=== PATIENT | male | born 1990 | race Caucasian/White ===

== ENCOUNTER 2016-11-02 18:27 | Emergency (ER) | payer BC, OTHER ==
[~2016-11-02] VITALS: Ht 188 cm; Wt 87.0 kg
[~2016-11-02 18:27] MED LIST: CEPH500C PO
[2016-11-02 18:30] VITALS: TEMP 37; Ht 188 cm; Wt 87.0 kg
[2016-11-02] MEDS ORDERED: SODIUM CHLORIDE 0.9% 1000ML 1,000 ML IV STA (18:50)
[2016-11-02 18:58] LABS: BASO % 0.9 %; BASO ABS # 0.05 K/uL (0-0.2); COMPLETE YES; EOS % 2.2 %; HEMATOCRIT 44.1 % (42-52); IG% 0.2 %; LYMPH % 25.4 %; LYMPH ABS # 1.37 K/uL (1.2-3.4); MEAN CELL VOLUME 90.2 fL (80-100); MEAN CORPUSCULAR HEMOGLOBIN 33.5 pg (25-34); MEAN CORPUSCULAR HGB CONC 37.2 g/dl (32-36); MEAN PLATELET VOLUME 9.7 fL (7.4-10.4); MONO % 10.9 %; NEUT % 60.4 %; PLATELET COUNT 254 K/uL (130-400); RED BLOOD COUNT 4.89 M/uL (4.7-6.1)
[2016-11-02] MEDS ORDERED: MULT-506 PO (19:04)
[2016-11-02 19:08] LABS: URINE APPEARANCE CLEAR (CLEAR); URINE BILIRUBIN NEG (NEG); URINE COLOR YELLOW; URINE NITRITE NEG (NEG); URINE SPECIFIC GRAVITY 1.005 (1.000-1.030); UROBILINOGEN NEG (NEG); ZZUR CULT IF INDIC CLEAN CATCH NO
[2016-11-02 19:10] LABS: MANUAL MICROSCOPIC REQUIRED? NO; REVIEW REQ? NO
[2016-11-02 19:13] LABS: ALT/SGPT 26 U/L (12-78); BLOOD UREA NITROGEN 16 mg/dl (7-18); BUN/CREATININE RATIO 9.1 (10-20); CALCIUM 9.2 mg/dl (8.5-10.1); CARBON DIOXIDE 23 mmol/L (21-32); CHLORIDE 99 mmol/L (98-107); GLUCOSE 108 mg/dl (70-99); MAGNESIUM 1.5 mg/dl (1.8-2.4); POTASSIUM 3.3 mmol/L (3.5-5.1); SODIUM 138 mmol/L (136-145)
[2016-11-02 19:24] LABS: ALB/GLOB RATIO 1.3 (0.9-2); ALKALINE PHOSPHATASE 43 U/L (45-117); AST/SGOT 28 U/L (15-37); CKMB/CK RATIO 0.4 (0-3.0)
[2016-11-02 19:33] LABS: BENZODIAZEPINE, URINE NEG (NEG); COCAINE,URINE NEG (NEG); PHENCYCLIDINE, URINE NEG (NEG)
--- NOTE | 2016-11-02 19:56 | EMERGENCY ROOM VISIT NOTE ---
History First contact with patient: 18:40 Chief Complaint: OTHER COMPLAINT Stated Complaint: MUSCLE CRAMPING History of Present Illness The patient is a 26 year old male who presents to the Emergency Room with complaints of muscle cramping. The patient reports that he was lifting weights and was performing pushups when he became lightheaded. He states that he then developed tingling in both of his hands and feet. He sat down and felt cramping all over his body. He reports that his hands and wrists spasm and he was unable to move them. He also had cramping throughout his abdomen. This lasted for approximately 45 minutes, until EMS arrived and started IV fluids. He states that his symptoms have resolved at this time, but he is concerned that his blood pressure is high. He takes a pre-workout containing caffeine and a creatine supplement. He denies any recent illnesses or fevers. He denies any chest pain, shortness of breath, nausea or vomiting. He denies any headaches or neck pain. Review of Systems A complete 10-point Review of Systems was discussed with the patient, with pertinent positives and negatives listed in the History of Present Illness. All remaining Review of Systems questions can be considered negative unless otherwise specified. Social History Smoking Status: Never Smoker Current/Historical Medications Scheduled Multivitamin (Multivitamin), 1 TAB PO DAILY Allergies Coded Allergies: Sulfa Antibiotics (Unverified Allergy, Unknown, RASH, 11/02/16) Physical Exam Vital Signs Date Time Temp Pulse Resp B/P Pulse Ox O2 Delivery O2 Flow Rate FiO2 11/02/16 20:03 89 16 137/71 98 Room Air 11/02/16 19:07 83 11/02/16 18:30 37.0 92 16 178/80 99 Room Air Physical Exam VITALS: Vitals are noted on the nurse's note and reviewed by myself. Vital signs stable. GENERAL: This is a 26-year-old male, in no acute distress, nondiaphoretic, well- developed well-nourished. SKIN: Capillary reflex less than 2 seconds. HEENT: Normocephalic. PERRLA. EOMI. Nares patent. Mucous membranes moist. Neck is supple without nuchal rigidity. HEART: Regular rate and rhythm without murmurs gallops or rubs. LUNGS: Clear to auscultation bilaterally without wheezes, rales or rhonchi. ABDOMEN: Positive bowel sounds x 4. Soft, nontender to palpation. MUSCULOSKELETAL: Full range of motion throughout all joints. Strength 5/5. NEURO: Patient was alert and oriented to person place and time. Normal sensation to light and sharp touch. Deep tendon reflexes 2+ throughout. No focal neurological deficits. Medical Decision & Procedures Laboratory Results 11/02/16 17:55 Red Blood Count 4.89, Mean Corpuscular Volume 90.2, Mean Corpuscular Hemoglobin 33.5, Mean Corpuscular Hemoglobin Concent 37.2, Mean Platelet Volume 9.7, Neutrophils (%) (Auto) 60.4, Lymphocytes (%) (Auto) 25.4, Monocytes (%) (Auto) 10.9, Eosinophils (%) (Auto) 2.2, Basophils (%) (Auto) 0.9, Neutrophils # (Auto ) 3.26, Lymphocytes # (Auto) 1.37, Monocytes # (Auto) 0.59, Eosinophils # (Auto ) 0.12, Basophils # (Auto) 0.05 11/02/16 17:55 Test 11/02/16 17:55 11/02/16 18:55 White Blood Count 5.40 K/uL (4.8-10.8) Red Blood Count 4.89 M/uL (4.7-6.1) Hemoglobin 16.4 g/dL (14.0-18.0) Hematocrit 44.1 % (42-52) Mean Corpuscular Volume 90.2 fL (80-100) Mean Corpuscular Hemoglobin 33.5 pg (25-34) Mean Corpuscular Hemoglobin Concent 37.2 g/dl (32-36) Platelet Count 254 K/uL (130-400) Mean Platelet Volume 9.7 fL (7.4-10.4) Neutrophils (%) (Auto) 60.4 % Lymphocytes (%) (Auto) 25.4 % Monocytes (%) (Auto) 10.9 % Eosinophils (%) (Auto) 2.2 % Basophils (%) (Auto) 0.9 % Neutrophils # (Auto) 3.26 K/uL (1.4-6.5) Lymphocytes # (Auto) 1.37 K/uL (1.2-3.4) Monocytes # (Auto) 0.59 K/uL (0.11-0.59) Eosinophils # (Auto) 0.12 K/uL (0-0.5) Basophils # (Auto) 0.05 K/uL (0-0.2) RDW Standard Deviation 41.5 fL (36.4-46.3) RDW Coefficient of Variation 12.7 % (11.5-14.5) Immature Granulocyte % (Auto) 0.2 % Immature Granulocyte # (Auto) 0.01 K/uL (0.00-0.02) Anion Gap 16.0 mmol/L (3-11) Est Creatinine Clear Calc Drug Dose 73.6 ml/min Estimated GFR () 59.7 Estimated GFR (Non- 51.5 BUN/Creatinine Ratio 9.1 (10-20) Calcium Level 9.2 mg/dl (8.5-10.1) Magnesium Level 1.5 mg/dl (1.8-2.4) Total Bilirubin 0.5 mg/dl (0.2-1) Aspartate Amino Transf (AST/SGOT) 28 U/L (15-37) Alanine Aminotransferase (ALT/SGPT) 26 U/L (12-78) Alkaline Phosphatase 43 U/L (45-117) Total Creatine Kinase 295 U/L (39-308) Creatine Kinase MB 1.1 ng/ml (0.5-3.6) Creatine Kinase MB Ratio 0.4 (0-3.0) Troponin I < 0.015 ng/ml (0-0.045) Total Protein 7.9 gm/dl (6.4-8.2) Albumin 4.4 gm/dl (3.4-5.0) Globulin 3.5 gm/dl (2.5-4.0) Albumin/Globulin Ratio 1.3 (0.9-2) Thyroid Stimulating Hormone (TSH) 3.450 uIu/ml (0.300-4.500) Urine Color YELLOW Urine Appearance CLEAR (CLEAR) Urine pH 8.0 (4.5-7.5) Urine Specific [place] 1.005 (1.000-1.030) Urine Protein NEG (NEG) Urine Glucose (UA) NEG (NEG) Urine Ketones NEG (NEG) Urine Occult Blood NEG (NEG) Urine Nitrite NEG (NEG) Urine Bilirubin NEG (NEG) Urine Urobilinogen NEG (NEG) Urine Leukocyte Esterase NEG (NEG) Urine Opiates Screen NEG (NEG) Urine Methadone, Qualitative NEG (NEG) Urine Barbiturates NEG (NEG) Urine Phencyclidine (PCP) Level NEG (NEG) Ur Amphetamine/Methamphetamine NEG (NEG) MDMA (Ecstasy) Screen NEG (NEG) Urine Benzodiazepines Screen NEG (NEG) Urine Cocaine Metabolite NEG (NEG) Urine Marijuana (THC) NEG (NEG) Medications Administered Medications (Trade) Dose Ordered Sig/Tyree Route Start Time Stop Time Status Last Admin Dose Admin Sodium Chloride (Nss 1000ml) 1,000 ml @ 999 mls/hr Q1H1M STAT IV 11/02/16 18:50 11/02/16 19:50 DC 11/02/16 18:55 999 MLS/HR ECG Indication: other Rate (beats per minute): 78 Rhythm: normal sinus Findings: nonspecific-ST abn (Inferior), no acute ischemic change, no ectopy Comparison ECG Date: no prior available Medical Decision Differential diagnosis includes dehydration, electrolyte abnormality, anxiety, among others. The patient was evaluated as above. Labs were drawn and IV access was obtained. Imaging studies were performed and read by radiology as above. The patient was medicated with 1 L normal saline solution. The patient was reassessed multiple times during their stay in the emergency department and remained in stable condition. The patient is a 26-year-old male who presents today complaining of muscle spasms and tingling in his hands and feet. The patient's symptoms have completely resolved at arrival to the ED. Labs revealed a mildly elevated creatinine at 1.80. The patient was mildly hypomagnesemic. A feel that the electrolyte abnormalities are likely secondary to his creatine use either dehydration secondary to exercising. The patient's hypertension resolved without treatment. He was encouraged to stop taking the creatine. He was encouraged to push fluids at home. He will return for worsening symptoms, otherwise will follow-up with his primary care provider for further evaluation. Based on the patient's presentation, lab results, and imaging studies, I feel the patient is stable for outpatient treatment. The patient's case was reviewed with Dr. Vargas, ED attending physician, who agreed with my assessment and treatment plan. Discharge instructions were reviewed with the patient. The patient verbalized understanding of my assessment and treatment plan and was discharged home in good condition. Impression Primary Impression: Dehydration Additional Impression: Muscle cramps Departure Information Dispostion Home / Self-Care Condition GOOD Referrals Pro,Navid Valencia M.D. (PCP) Patient Instructions My [facility] Additional Instructions You should stop taking the creatine. For pain control, you can use the following [id number] medicines (if >12 yo): - Regular strength (325mg/tab) Tylenol (acetaminophen) 2 tabs every 4-6 hours as needed. Do not exceed 12 tablets in a 24 hour period. Avoid taking more than 4 grams (4000 mg) of Tylenol per day. This includes any other sources of acetaminophen you may take on a regular basis. - Regular strength (200 mg/tab) Advil (ibuprofen) 1-2 tabs every 4-6 hours as needed. Do not exceed a dose of 3200 mg per day. Rest and drink plenty of fluids for the next few days. Follow-up with her primary care provider this week. Return to the emergency department for any worsening or concerning symptoms. Problem Qualifiers
[2016-11-02 20:03] VITALS: BP 137/71; PULSE 89; O2SAT 98
== END 2016-11-02 20:04 | disposition home or self-care (01) ==
LOC: EDBD 18:27 → C.EDA 18:28
DX: E86.0 Dehydration (principal); R25.2 Cramp and spasm

== ENCOUNTER → 2017-05-19 | Outpatient (CLI) | payer BC, OTHER ==
[~2017-05-19] MED LIST changes: -CEPH500C PO; +MULT-506 PO
--- NOTE | 2017-05-19 16:52 | DIAGNOSTIC IMAGING REPORT ---
LEFT RIBS UNILATERAL WITH PA CHEST CLINICAL HISTORY: R07.89 Atypical chest [id number] COMPARISON STUDY: None. FINDINGS: The lungs are clear. The heart is normal in size. No pleural effusions. No pneumothorax. No rib fractures. IMPRESSION: No rib fractures. No pneumothorax. Electronically signed by: Mauricio Rust M.D. 05/19/2017 4:51 PM Dictated Date/Time: 05/19/2017 4:48 PM
== END | disposition home or self-care (01) ==
LOC: C.RAD1850 16:03
PROVIDERS: ATTEND Physician Assistant
DX: R07.89 Other chest pain (principal)